=== PATIENT | male | born 1980 | race Caucasian/White ===

== ENCOUNTER → 2018-02-28 | Emergency (ER) | payer MEDICAID ==
[~2018-02-28] VITALS: Ht 170.2 cm; Wt 63.6 kg
[~2018-02-28] MED LIST: ibuprofen 200mg tablet PO ONE; ibuprofen tablet 400 MG TABLET PO ONE
[2018-02-28 06:53] VITALS: BP 116/85
== END | disposition home or self-care (01) ==
LOC: ER 06:53
DX: S30.810A Abrasion of lower back and pelvis, initial encounter (principal); M54.2 Cervicalgia; E11.9 Type 2 diabetes mellitus without complications; Z59.0 Homelessness; Z88.5 Allergy status to narcotic agent; Y08.89XA Assault by other specified means, initial encounter; Y93.89 Activity, other specified; Y92.89 Other specified places as the place of occurrence of the external cause; Y99.8 Other external cause status
CPT/HCPCS: 99282